=== PATIENT | female | born 1945 | race Caucasian/White ===

== ENCOUNTER 2016-12-08 10:03 | Outpatient (CLI) | payer MEDICARE, BC ==
[2015-04-22 12:25] VITALS: BP 166/98
== END 2016-12-08 10:04 ==
LOC: RAD 10:03
PROVIDERS: ATTEND Clinical Nurse Specialist Medical-Surgical
DX: M81.0 Age-related osteoporosis without current pathological fracture (principal); Z87.310 Personal history of (healed) osteoporosis fracture; E55.9 Vitamin D deficiency, unspecified; R26.9 Unspecified abnormalities of gait and mobility
CPT/HCPCS: 36415; 77080; 82306; 82310; 83970

== ENCOUNTER 2017-01-12 09:12 | Outpatient (CLI) | payer MEDICARE, BC ==
[2015-04-22 12:25] VITALS: BP 166/98
[2017-01-12 10:00] LABS: eGFR (African) > 60; eGFR (Non-African) > 60
== END 2017-01-12 09:13 ==
LOC: LAB 09:12
PROVIDERS: ATTEND Internal Medicine Cardiovascular Disease
DX: R06.02 Shortness of breath (principal)
CPT/HCPCS: 36415; 80048

== ENCOUNTER 2017-06-02 14:11 | Outpatient (CLI) | payer MEDICARE, BC ==
[2015-04-22 12:25] VITALS: BP 166/98
[2017-06-02 14:58] LABS: eGFR (African) > 60; eGFR (Non-African) > 60
== END 2017-06-02 14:12 ==
LOC: LAB 14:11
PROVIDERS: ATTEND Clinical Nurse Specialist Medical-Surgical
DX: M81.0 Age-related osteoporosis without current pathological fracture (principal); Z87.310 Personal history of (healed) osteoporosis fracture; E55.9 Vitamin D deficiency, unspecified; R26.9 Unspecified abnormalities of gait and mobility; E83.52 Hypercalcemia
CPT/HCPCS: 36415; 80053; 82306; 82330

== ENCOUNTER → 2017-09-24 | Outpatient (CLI) | payer MEDICARE, OTHER ==
[2015-04-22 12:25] VITALS: BP 166/98
[2017-09-24 10:21] LABS: eGFR (African) > 60; eGFR (Non-African) > 60
== END ==
LOC: LAB 09:36
PROVIDERS: ATTEND Family Medicine
DX: E78.2 Mixed hyperlipidemia (principal); E03.9 Hypothyroidism, unspecified
CPT/HCPCS: 36415; 80053; 80061; 84443

== ENCOUNTER 2019-08-08 13:53 | Outpatient (CLI) | payer MEDICARE, OTHER ==
[2015-04-22 12:25] VITALS: BP 166/98
[2019-08-08 15:38] LABS: eGFR (Non-African) > 60
--- NOTE | 2019-08-08 16:48 | Diagnostic Imaging Report ---
PATIENT MR#: [id number] PATIENT PATIENT NAME: BLAKE MALIK DATE OF : 1945 REFERRING PHYSICIAN: Nya Esposito EXAM DATE: 08/08/2019 ACCESSION NUMBER: [id number] EXAM DESCRIPTION: CT MAXILLOFACIAL W/O D HISTORY:CHRONIC MAXILLARY SINUSITIS COMPARISON: No relevant comparison is available at the time of interpretation. CT FACE AND MANDIBLE without contrast: Nasal Bone: Intact. Sinuses and mastoids: There appear to be surgical changes of sinuplasty of the medial romo of the b ilateral maxillary sinuses. Paranasal sinuses are clear, without fluid levels or significant mucosal thickening. Orbits: Normal. Maxilla: Intact. Mandible: Intact. IMPRESSION: No evidence of acute or chronic paranasal sinusitis. Read by: Dr. Ephraim Burgos Transcribed by: Ephraim Burgos Transcribed Date: 08/08/2019 4:47:50 PM Electronically signed by: Dr. Ephraim Burgos Date signed: 08/08/2019 4:47:50 PM
== END 2019-08-08 14:10 ==
LOC: RAD 13:53
PROVIDERS: ATTEND Family Medicine
DX: J32.0 Chronic maxillary sinusitis (principal); G25.81 Restless legs syndrome
CPT/HCPCS: 36415; 70486; 80053; 85027

== ENCOUNTER 2019-09-01 14:47 | Outpatient (CLI) | payer MEDICARE, OTHER ==
[2015-04-22 12:25] VITALS: BP 166/98
--- NOTE | 2019-09-01 16:14 | Diagnostic Imaging Report ---
PATIENT MR#: [id number] PATIENT PATIENT NAME: BLAKE MALIK DATE OF : 1945 REFERRING PHYSICIAN: Chrissy Marquez EXAM DATE: 09/01/2019 ACCESSION NUMBER: [id number] EXAM DESCRIPTION: CHEST 2VIEW HISTORY: SHORTNESS OF AIR. COMPARISON: March 30, 2019. CHEST RADIOGRAPH, FRONTAL AND LATERAL: Upper mediastinum: Not widened. Heart: No cardiomegaly. Lungs: Bilateral lower lobe atelectasis, without lobar consolidation No lobar infiltrate, pulmonary e saad, pneumothorax or significant effusion. Skeleton: Chronic anterior wedge compression fracture T3, with hyperkyphosis. Severe anterior wedge c ompression fracture of T9, with hyperkyphosis. Grade 1 anterolisthesis of T8 over T10. T10-L1 vertebroplasties. Thoracolu mbar fusion from T10-L4. Superior endplate compression deformity of L2. Anterior fusion at L4-5 and L5-S1. IMPRESSION: 1. Interval development of bilateral lower lobe atelectasis, without lobar consolidation or pulmonary edema. 2. Multilevel thoracic vertebroplasties with hyperkyphoses. Multilevel vertebroplasties. Thoracolumba r fusion. Read by: Dr. Ephraim Burgos Transcribed by: Ephraim Burgos Transcribed Date: 09/01/2019 4:14:09 PM Electronically signed by: Dr. Ephraim Burgos Date signed: 09/01/2019 4:14:09 PM
== END 2019-09-01 14:57 ==
LOC: RAD 14:47
PROVIDERS: ATTEND Nurse Practitioner Family
DX: R06.02 Shortness of breath (principal)
CPT/HCPCS: 71046